=== PATIENT | female | born 1985 | race Caucasian/White ===

== ENCOUNTER 2020-07-19 18:48 | Emergency (ER) | payer BC ==
[~2020-07-19] VITALS: Ht 180.3 cm; Wt 87.5 kg
[2020-07-19] MEDS ORDERED: IV NS 0.9% 1,000 ML BAG IV ONE ×2 (19:00)
--- NOTE | 2020-07-19 19:15 | NUR ---
PT REC'D TO ER VIA EMS PT WAS DRINKING WITH HER FAMILY 1941 SHOTS NOT RESPONDING RT HAND 22 G INFUSING # 2 NS 1000CC BOLUS . UA SENT TO LAB IN AND OUT DONE SM BM NOTED VSS REPORT GIVEN TO PM RN .
[2020-07-19 19:37] LABS: APPEARANCE,URINE CLEAR (CLEAR); BILIRUBIN,URINE NEGATIVE (NEGATIVE); BLOOD, URINE NEGATIVE Ery/uL (NEGATIVE); COLOR,URINE YELLOW (YELLOW); KETONES,URINE NEGATIVE (NEGATIVE); LEUKOCYTE ESTERASE ,URINE NEGATIVE (NEGATIVE); NITRITE, URINE NEGATIVE (NEGATIVE); PH,URINE 5.5 (5.0-8.0); PROTEIN,URINE NEGATIVE (NEGATIVE); UGLUCOSE NEGATIVE (NEGATIVE); UROBILINOGEN,URINE 0.2 EU/dL (0.2)
[2020-07-19 20:10] LABS: BASOPHILS # (AUTO) 0.1 /CMM (0.0-0.2); BASOPHILS % (AUTO) 0.8 % (0.0-2.0); EOSINOPHILS % (AUTO) 0.2 % (0.0-6.0); HEMATOCRIT 46 % (33-45); HEMOGLOBIN 14.6 g/dL (11.5-14.8); LYMPHOCYTES # (AUTO) 1.3 /CMM (0.8-4.8); LYMPHOCYTES % (AUTO) 16.7 % (20.0-44.0); MEAN CORPUSCULAR HGB CONC 32 g/dl (31.0-36.0); MEAN CORPUSCULAR VOLUME 89 fL (82-100); MONOCYTES # (AUTO) 0.3 /CMM (0.1-1.30); MONOCYTES % (AUTO) 4.5 % (2.0-12.0); NEUTROPHILS % (AUTO) 77.8 % (43.0-81.0); PLATELET COUNT (AUTO) 257 /CMM (150-450); WHITE BLOOD COUNT (AUTO) 7.6 K/uL (4.3-11.0)
[2020-07-19 20:15] LABS: CALCIUM, SERUM 8.3 mg/dL (8.5-10.1); CARBON DIOXIDE 24 mmol/L (21-32); CHLORIDE 103 mmol/L (98-107); CREATININE 1.2 mg/dL (0.6-1.3); GLUCOSE 93 mg/dL (74-106); POTASSIUM 3.2 mmol/L (3.5-5.1); SODIUM SERUM 137 mmol/L (136-145); UREA NITROGEN, BLOOD 13 mg/dL (7-18)
[2020-07-19 20:21] LABS: ALANINE AMINOTRANSFERASE 16 U/L (12-78); ALBUMIN 3.9 g/dL (3.4-5.0); ALCOHOL, BLOOD 281 mg/dL (0-0); ALKALINE PHOSPHATASE 69 U/L (46-116); ASPARTATE AMINOTRANSFERASE 14 U/L (15-37); BILIRUBIN,TOTAL 0.3 mg/dL (0.2-1.0); TOTAL PROTEIN, SERUM 7.7 g/dL (6.4-8.2)
--- NOTE | 2020-07-19 21:18 | NUR ---
CALLED [facility] FOR PANEL ADMISSION. DR. BANKS PAGED WAITING FOR CALL BACK
--- NOTE | 2020-07-19 21:30 | NUR ---
ADMISSION PACKET PROVIDED TO ADMITTING.
--- NOTE | 2020-07-19 21:40 | NUR ---
DR. BANKS SPEAKING TO PAC ZEP REGARDING PLAN OF CARE
[2020-07-19] MEDS ORDERED: POTASSIUM CHLORIDE 20 MEQ TAB.PRT.SR PO ONE (22:00)
--- NOTE | 2020-07-19 22:39 | NUR ---
DR. BANKS AWARE PT AOX4, NOTED WITH STEADY GAIT. CLEARED FOR DISCHARGE. WILL CALL PT FATHER.
--- NOTE | 2020-07-19 22:44 | NUR ---
FATHER FIFI KEATON PT IS CLEARED FOR DISCHARGE.
--- NOTE | 2020-07-19 22:58 | NUR ---
IV removed. Catheter intact and site benign. Pressure and 4x4 applied to site. No bleeding noted.
[2020-07-19 23:05] VITALS: BP 110/74
--- NOTE | 2020-07-19 23:05 | NUR ---
Patient discharged to home in stable condition. Written and verbal after care instructions given. Patient verbalizes understanding of instruction. Pt ambulatory with a steady gait
--- NOTE | 2020-07-19 23:06 | NUR ---
pt picked up by her father.
== END 2020-07-19 23:05 | disposition home or self-care (01) ==
LOC: EDBD 18:48 → ER 18:48 → UNDOADMIN 22:04 → OBSER 22:04 → ER 23:05
DX: S20.311A Abrasion of right front wall of thorax, initial encounter (principal); R41.82 Altered mental status, unspecified; F10.129 Alcohol abuse with intoxication, unspecified; F15.10 Other stimulant abuse, uncomplicated; Y90.8 Blood alcohol level of 240 mg/100 ml or more; X58.XXXA Exposure to other specified factors, initial encounter; Y93.89 Activity, other specified; Y92.89 Other specified places as the place of occurrence of the external cause; Y99.8 Other external cause status
CPT/HCPCS: 36415; 70450-TC; 80048-TC; 80076-TC; 81000-TC; 83690-TC; 85025-TC; G0378; G0480